=== PATIENT | male | born 1975 | race Caucasian/White ===

== ENCOUNTER 2021-02-28 13:12 | Emergency (ER) | payer OTHER ==
[~2021-02-28] VITALS: Ht 172.7 cm; Wt 76.2 kg
[2021-02-28 15:48] VITALS: BP 126/56
== END 2021-02-28 15:48 | disposition home or self-care (01) ==
LOC: M.ERS 13:12
DX: M25.522 Pain in left elbow (principal); K21.9 Gastro-esophageal reflux disease without esophagitis

== ENCOUNTER 2021-03-01 20:42 | Emergency (ER) | payer OTHER ==
[~2021-03-01] VITALS: Ht 172.7 cm; Wt 69.0 kg
[2021-03-01 23:22] VITALS: BP 126/76
--- NOTE | 2021-03-03 15:20 | EKG ---
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
== END 2021-03-01 23:22 | disposition home or self-care (01) ==
LOC: M.ERS 20:42
DX: R05 Cough (principal); R09.81 Nasal congestion; Z20.822 Contact with and (suspected) exposure to COVID-19; K21.9 Gastro-esophageal reflux disease without esophagitis